=== PATIENT | female | born 1995 | race Caucasian/White ===

== ENCOUNTER 2018-08-08 12:28 | Emergency (ER) | payer OTHER ==
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
[2018-08-08 13:58] VITALS: BP 108/74
== END 2018-08-08 14:00 | disposition home or self-care (01) ==
LOC: EDBD 12:28
DX: S06.9X1A Unspecified intracranial injury with loss of consciousness of 30 minutes or less, initial encounter (principal); S16.1XXA Strain of muscle, fascia and tendon at neck level, initial encounter; S29.012A Strain of muscle and tendon of back wall of thorax, initial encounter; Y93.22 Activity, ice hockey; V00.211A Fall from ice-skates, initial encounter